=== PATIENT | female | born 1970 ===

== ENCOUNTER 2021-02-19 17:35 | Emergency (ER) | payer OTHER ==
[2021-02-19 18:17] VITALS: BP 124/97; PULSE 120
--- NOTE | 2021-02-19 18:56 | EDM.PDOC ---
ED HPI GENERAL MEDICAL PROBLEM - General Chief Complaint: Lower Extremity Injury/Pain Stated Complaint: lower extremity injury Time Seen by Provider: 02/19/21 18:00 - History of Present Illness INITIAL COMMENTS - FREE TEXT/NARRATIVE: Pt comes in with C/O left foot and ankle pain. She had reconstructive surgery 1 week ago, and has been doing well. Today she slipped while reaching into a cupboard and put weight on the forefoot area. This caused more pain issues for her. She contacted the Surgeon and he wanted x-rays today. She has no pain of the lower leg. She is still taking pain meds given after surgery. Left Ankle Pain Score (Numeric/FACES): 8 - Related Data Allergies Allergy/AdvReac Type Severity Reaction Status Date / Time bupropion [From Wellbutrin] Allergy Rash Verified 02/19/21 18:20 hydralazine Allergy Hypertensio Verified 02/19/21 18:20 n tramadol HCl [From Ultram] Allergy Rash Verified 12/26/12 15:50 Home Meds: Home Meds Levothyroxine Sodium [Synthroid] 0.25 mcg PO DAILY 12/26/12 [History] estradioL [Vivelle-Dot] 1 mg TD 12/26/12 [History] Amitriptyline [Elavil] 50 mg PO DAILY 02/19/21 [History] Aspirin 81 mg PO DAILY 02/19/21 [History] Ergocalciferol (Vitamin D2) [Vitamin D2] 50,000 unit PO DAILY 02/19/21 [History] Losartan [Cozaar] 50 mg PO DAILY 02/19/21 [History] Metoprolol Succinate [Toprol XL] 25 mg PO DAILY 02/19/21 [History] Naratriptan HCl 2.5 mg PO ASDIRECTED PRN 02/19/21 [History] amLODIPine [Norvasc] 2.5 mg PO DAILY 02/19/21 [History] cloNIDine [Catapres] 0.2 mg PO BID 02/19/21 [History] oxyCODONE 5 mg PO TID 02/19/21 [History] tiZANidine HCl [Tizanidine HCl] 2 mg PO TID 02/19/21 [History] Past Medical History HEENT History: Reports: Other (See Below) Other HEENT History: neck surgery x4 - most recent 2019. 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 Musculoskeletal History: Reports: Neck Pain, Chronic Neurological History: Reports: Other (See Below) Other Neuro History: RLE numbness, from femoral nerve damage Endocrine/Metabolic History: Reports: Hypothyroidism, Obesity/BMI 30+ Social & Family History - Tobacco Use Tobacco Use Status *Q: Never Tobacco User - Recreational Drug Use Recreational Drug Use: Yes Drug Use in Last 12 Months: Yes Recreational Drug Type: Reports: Other (see below) Other Recreational Drug Type: medical marjiuana Review of Systems - Review of Systems Review Of Systems: Comprehensive ROS is negative, except as noted in HPI. Musculoskeletal: Reports: Other (left foot and ankle pain.) ED EXAM, GENERAL - Physical Exam Exam: See Below Extremities: Other (Pt has a splint/dressing on the left foot and ankle. The toes are warm to touch and have good color. Her leg above the splint is nml, warm and dry. No drainage noted.) Course - Vital Signs Last Recorded V/S: Last Vital Signs Temp 97.5 F 02/19/21 18:16 Pulse 120 H 02/19/21 18:16 Resp 16 02/19/21 18:16 BP 124/97 H 02/19/21 18:16 Pulse Ox 94 L 02/19/21 18:16 - Orders/Labs/Meds Orders: Active Orders 24 hr Category Date Time Status Ankle Min 3V Lt [CR] Stat Exams 02/19/21 18:14 Ordered - Radiology Interpretation Free Text/Narrative:: x-rays of the left ankle were done. I do not see any acute bony or hardware abnormality. The pt took pictures on her phone she can send to her surgeon. Continue with current tx measures. Departure - Departure Time of Disposition: 18:45 Disposition: Home, Self-Care 01 Condition: Good Clinical Impression: Post-op pain - Discharge Information *PRESCRIPTION DRUG MONITORING PROGRAM REVIEWED*: No *COPY OF PRESCRIPTION DRUG MONITORING REPORT IN PATIENT AMINATA: No Instructions: Surgery for Chronic Ankle Instability, Care After Referrals: PCP,None [Primary Care Provider] - Forms: ED Department Discharge Additional Instructions: Elevate foot to reduce swelling, treat pain with the prescribed medications, ice, remain non-weight bearing as directed. Follow up with surgeon and outpatient clinic if needed. Sepsis Event Note (ED) - Evaluation Sepsis Screening Result: No Definite Risk - Focused Exam Vital Signs: Vital Signs Temp Pulse Resp BP Pulse Ox 02/19/21 18:16 97.5 F 120 H 16 124/97 H 94 L - My Orders Last 24 Hours: My Active Orders 02/19/21 18:14 Ankle Min 3V Lt [CR] Stat - Assessment/Plan Last 24 Hours: My Active Orders 02/19/21 18:14 Ankle Min 3V Lt [CR] Stat
--- NOTE | 2021-02-20 11:02 | CR ---
Date of Service: 02/19/21 Clinical Data: Postoperative pain. LEFT ANKLE: No priors. Views through a cast were performed. The patient is status post internal fixation of a distal fibular fracture with metallic side plate and multiple screws. Fracture fragments are in anatomic alignment and position. No other significant findings. [id number] MTDD
== END 2021-02-19 18:55 | disposition home or self-care (01) ==
LOC: LB.ED 17:35
DX: G89.18 Other acute postprocedural pain (principal); M25.572 Pain in left ankle and joints of left foot; I10 Essential (primary) hypertension; E03.9 Hypothyroidism, unspecified; E66.9 Obesity, unspecified; Z68.41 Body mass index [BMI] 40.0-44.9, adult; Z88.5 Allergy status to narcotic agent; Z88.8 Allergy status to other drugs, medicaments and biological substances; Z79.82 Long term (current) use of aspirin; Z79.899 Other long term (current) drug therapy
CPT/HCPCS: 73610-LT; 99283-25